=== PATIENT | female | born 1985 | race Caucasian/White ===

== ENCOUNTER 2021-03-27 15:55 | Emergency (ER) | payer BC ==
[~2021-03-27] VITALS: Ht 180.3 cm; Wt 150.9 kg
--- NOTE | 2021-03-27 16:15 | NUR ---
PT CAME IN AFTER SHE WAS IN THE SHOWER AND "I SUDDENLY FELT REALLY DIZZY IF I WAS GOING TO PASS OUT." PT DENIES LOC. PT RESTING IN [facility] AND IS ONLY CO OF [facility] AT THIS TIME. EKG COMPLETE. CONNECTED TO ALL MONITORING EQUIPMENT. BLANKET PROVIDED
[2021-03-27] MEDS ORDERED: METOCLOPRAMIDE 5 MG/ML, 2ML ONE (17:17)
[2021-03-27] MEDS ORDERED: KETOROLAC 30 MG/1 ML ONE (17:17)
[2021-03-27] MEDS ORDERED: DIPHENHYDRAMINE 50 MG/ML, 1ML ONE (17:17)
[2021-03-27] MEDS ORDERED: SODIUM CHLORIDE 0.9% 1,000ML IVBOLUS ONE (17:30)
[2021-03-27] MEDS ORDERED: METOCLOPRAMIDE 5 MG/ML, 2ML IVPush ONE (17:30)
[2021-03-27] MEDS ORDERED: KETOROLAC 30 MG/1 ML IVPush ONE (17:30)
[2021-03-27] MEDS ORDERED: DIPHENHYDRAMINE 50 MG/ML, 1ML IV ONE (17:30)
[2021-03-27] MEDS ORDERED: SODIUM CHLORIDE FLUSH 10ML SYR IVF ONE (17:30)
--- NOTE | 2021-03-27 17:33 | NUR ---
PT MEDICATED PER MAR
[2021-03-27 17:40] LABS: BASOPHILS % (AUTO) 1 % (0-1); EOSINOPHILS % (AUTO) 1 % (1-7); LYMPHOCYTES % (AUTO) 29 % (22-44); MEAN CORPUSCULAR HEMOGLOBIN 30.1 pg (27.0-34.8); MEAN CORPUSCULAR HGB CONC 33.5 g/dL (32.4-35.8); MEAN PLATELET VOLUME 7.5 fL (7.4-10.4); MONOCYTES % (AUTO) 5 % (2-9); NEUTROPHILS % (AUTO) 65 % (42-75); PLATELET COUNT 397 x10^3/uL (130-400); RED BLOOD COUNT 4.42 x10^6/uL (3.82-5.3); RED CELL DISTRIBUTION WIDTH 14.6 % (9.6-15.2)
[2021-03-27 17:41] LABS: MD NO
[2021-03-27 17:52] LABS: ALANINE AMINOTRANSFERASE 42 U/L (12-78); ALBUMIN 3.6 g/dL (3.4-5.0); ANION GAP 4 mmol/L (5-15); CALCIUM 8.9 mg/dL (8.5-10.1); CHLORIDE 109 mmol/L (98-107); CREATININE 0.85 mg/dL (0.55-1.02)
[2021-03-27 17:57] LABS: ALKALINE PHOSPHATASE 71 U/L (45-117); BILIRUBIN,TOTAL 0.2 mg/dL (0.2-1.0)
[2021-03-27 18:44] VITALS: BP 160/97
--- NOTE | 2021-03-27 18:44 | NUR ---
PT REPORTS SHE "FEELS MUCH BETTER". UP FOR RECHECK
== END 2021-03-27 19:32 | disposition home or self-care (01) ==
LOC: ED 19:13
DX: R55 Syncope and collapse (principal); G44.219 Episodic tension-type headache, not intractable; R42 Dizziness and giddiness; R94.31 Abnormal electrocardiogram [ECG] [EKG]
CPT/HCPCS: 36415; 70450; 80053; 83735; 84443; 84703; 85025; 93005; 96361; 96374; 96375; 99285; J1200; J1885; J2765; J7030